=== PATIENT | male | born 1995 | race Caucasian/White ===

== ENCOUNTER 2016-09-27 13:06 | Emergency (ER) | payer OTHER ==
[2016-09-27 14:33] VITALS: BP 111/59
--- NOTE | 2016-09-27 15:09 | UC ---
Respiratory Complaint HPI - HPI Summary HPI Summary: 20 yo male with cough x 1 month hx of asthma no f/c productive of yellowish sputum no CP no SOB - History of Current Complaint Chief Complaint: UCRespiratory Stated Complaint: COUGH SORE THROAT Time Seen by Provider: 09/27/16 15:00 Hx Obtained From: Patient Onset/Duration: Gradual Onset, Lasting Weeks - 4 or more Timing: Constant Severity Initially: Mild Severity Currently: Moderate Pain Intensity: 2 Pain Scale Used: 0-10 Numeric Character: Cough: Productive - yellow Aggravating Factors: Exertion Alleviating Factors: Bronchodilator Associated Signs And Symptoms: Positive: Wheezing - Allergies/Home Medications Allergies/Adverse Reactions: Allergies Allergy/AdvReac Type Severity Reaction Status Date / Time Amoxicillin Allergy Hives Verified 09/27/16 14:33 Ceftriaxone [From Rocephin] Allergy Hives Verified 09/27/16 14:33 Home Medications: Home Medications Albuterol HFA INHALER* [Ventolin HFA Inhaler*] 2 puff INH Q4H PRN 09/27/16 [ History Confirmed 09/27/16] Dextromethorphan-Phenylephrine [Day Time Multi-Symptom Co] 1 cap PO PRN [History] PMH/Surg Hx/FS Hx/Imm Hx Endocrine History Of: Denies: Diabetes, Thyroid Disease Cardiovascular History Of: Denies: Cardiac Disorders, Hypertension Respiratory History Of: Reports: Asthma, Pneumonia - age 7 Denies: COPD GI/ History Of: Denies: Ulcer - Surgical History Surgical History: Yes Surgery Procedure, Year, and Place: Right ankle surgery - Family History Known Family History: Positive: Hypertension, Respiratory Disease - Social History Alcohol Use: Occasionally Substance Use Type: Marijuana Substance Use Comment - Amount & Last Used: weekend use Smoking Status (MU): Never Smoked Tobacco Review of Systems Constitutional: Negative Skin: Negative Eyes: Negative ENT: Negative Respiratory: Cough Cardiovascular: Negative Gastrointestinal: Negative Genitourinary: Negative Motor: Negative Neurovascular: Negative Musculoskeletal: Negative Neurological: Negative Psychological: Negative All Other Systems Reviewed And Are Negative: Yes Physical Exam Triage Information Reviewed: Yes Appearance: Well-Appearing, No Pain Distress, Well-Nourished Vital Signs: Initial Vital Signs Temp 97.9 F 09/27/16 14:28 Pulse 67 09/27/16 14:28 Resp 14 09/27/16 14:28 BP 111/59 09/27/16 14:28 Pulse Ox 97 09/27/16 14:28 Vital Signs Reviewed: Yes Eyes: Positive: Conjunctiva Clear ENT: Positive: Hearing grossly normal, Pharynx normal, Pharyngeal erythema, TMs normal, TM bulging Respiratory: Positive: Wheezing - with forced expiration inspiratory wheeze left lower lobe Cardiovascular: Positive: RRR, No Murmur, Pulses Normal Abdomen Description: Positive: Nontender, No Organomegaly, Soft Bowel Sounds: Positive: Present Musculoskeletal: Positive: ROM Intact, No Edema Neurological: Positive: Alert Psychological Exam: Normal Skin Exam: Normal UC Diagnostic Evaluation - Laboratory O2 Sat by Pulse Oximetry: 97 Respiratory Course/Dx - Course Course Of Treatment: declines CXR. states he will reconsider if symtpoms worsen or if not improved in 5 days - Differential Dx/Diagnosis Provider Diagnoses: acute bronchitis Discharge - Discharge Plan Condition: Stable Disposition: HOME Prescriptions: Azithromycin TAB* [Zithromax TAB*] 250 mg PO DAILY #6 tab Benzonatate CAP* [Tessalon CAP*] 100 - 200 mg PO TID PRN #28 cap PRN Reason: Cough Prednisone [Deltasone] 40 mg PO DAILY #10 tab Patient Education Materials: Acute Bronchitis (ED) Referrals: Non Staff,Doctor [Primary Care Provider] - Additional Instructions: rest] fluids recheck for new or worsening symptoms recheck next week if not completely za
== END 2016-09-27 15:24 | disposition home or self-care (01) ==
LOC: UCCORT 13:06
DX: J20.9 Acute bronchitis, unspecified (principal); Z88.1 Allergy status to other antibiotic agents; F12.90 Cannabis use, unspecified, uncomplicated
CPT/HCPCS: 99212; G0463

== ENCOUNTER 2017-05-24 13:55 | Emergency (ER) | payer OTHER ==
[2017-05-24 14:17] VITALS: BP 122/59
--- NOTE | 2017-05-24 15:03 | RAD ---
HISTORY: Left clavicle trauma COMPARISONS: None VIEWS: 2, frontal and frontal oblique views of the left clavicle FINDINGS: BONE DENSITY: Normal. BONES: There is no displaced fracture. JOINTS: There is no arthropathy. ALIGNMENT: There is no dislocation. SOFT TISSUES: Unremarkable. OTHER FINDINGS: None. IMPRESSION: NO ACUTE OSSEOUS INJURY. IF SYMPTOMS PERSIST, RECOMMEND REPEAT IMAGING.
--- NOTE | 2017-05-24 15:07 | RAD ---
INDICATION: Left shoulder pain after hockey injury to a fairly COMPARISON: None. TECHNIQUE: 4 views of the left shoulder were obtained. FINDINGS: The adequately corticated bones are in normal alignment. Joint spaces appear maintained. No fracture, dislocation or focal bony abnormality is seen. IMPRESSION: Normal radiograph of the left shoulder. If the patient's symptoms persist, follow-up imaging is recommended.
--- NOTE | 2017-05-24 15:16 | ED ---
Upper Extremity Pain - HPI Summary HPI Summary: 21 yr old male with the complaint of left shoulder clavicle pain. Onset two days ago when playing hockey. He hit his left anterior shoulder with another player. he felt a harness puller the clavicle area an into his lateral trapezius left side. His pain is moderate, worse with elevation of the left arm above 90 degrees forward flexion and abduction. No weakness or numbness in the hand. - History of Current Complaint Chief Complaint: UCUpperExtremity Stated Complaint: LT SHOULDER INJURY Time Seen by Provider: 05/24/17 14:40 - Allergies/Home Medications Allergies/Adverse Reactions: Allergies Allergy/AdvReac Type Severity Reaction Status Date / Time Amoxicillin Allergy Hives Verified 05/24/17 14:17 Ceftriaxone [From Rocephin] Allergy Hives Verified 05/24/17 14:17 Home Medications: Home Medications Ibuprofen [Advil] 400 mg PO Q4H PRN 05/24/17 [History Confirmed 05/24/17] PMH/Surg Hx/FS Hx/Imm Hx Previously Healthy: Yes Endocrine/Hematology History: Denies: Hx Diabetes, Hx Thyroid Disease Cardiovascular History: Denies: Hx Hypertension Respiratory History: Reports: Hx Asthma, Hx Pneumonia - age 7 Denies: Hx Chronic Obstructive Pulmonary Disease (COPD) GI History: Denies: Hx Ulcer - Surgical History Surgery Procedure, Year, and Place: Right ankle tendon repair surgery Infectious Disease History: No Infectious Disease History: Denies: Hx Clostridium Difficile, Hx Hepatitis, Hx Human Immunodeficiency Virus (HIV), Hx of Known/Suspected MRSA, Hx Shingles, Hx Tuberculosis, Hx Known/ Suspected VRE, Hx Known/Suspected VRSA, History Other Infectious Disease, Traveled Outside the [place] in Last 30 Days - Family History Known Family History: Positive: Hypertension, Respiratory Disease - Social History Alcohol Use: Occasionally Substance Use Type: Reports: Marijuana Substance Use Comment - Amount & Last Used: occassional Smoking Status (MU): Never Smoked Tobacco Review of Systems Constitutional: Negative Positive: Other - left shoulder pain All Other Systems Reviewed And Are Negative: Yes Physical Exam Triage Information Reviewed: Yes Vital Signs On Initial Exam: Initial Vitals Temp Pulse Resp BP 98.5 F 68 18 122/59 05/24/17 14:11 05/24/17 14:11 05/24/17 14:11 05/24/17 14:11 Vital Signs Reviewed: Yes Appearance: Positive: Well-Appearing, No Pain Distress Skin: Positive: Skin Color Reflects Adequate Perfusion Head/Face: Positive: Normal Head/Face Inspection Eyes: Positive: EOMI ENT: Positive: Normal ENT inspection Respiratory/Lung Sounds: Positive: Clear to Auscultation, Breath Sounds Present Cardiovascular: Positive: RRR. Negative: Murmur Abdomen Description: Positive: Nontender Musculoskeletal: Positive: Other - ROM is decreased on forward flexion and abduction left arm beyond 90 degrees. Neurological: Positive: Sensory/Motor Intact, Alert, Oriented to Person Place, Time, CN Intact II-III Psychiatric: Positive: Normal - Quan Coma Scale Best Eye Response: 4 - Spontaneous Best Motor Response: 6 - Obeys Commands Best Verbal Response: 5 - Oriented Diagnostics - Vital Signs Vital Signs Temp Pulse Resp BP 05/24/17 14:11 98.5 F 68 18 122/59 - Laboratory Lab Statement: Any lab studies that have been ordered have been reviewed, and results considered in the medical decision making process. - Radiology left shoulder/clavicle Xray Interpretation: No Acute Changes Radiology Interpretation Completed By: Radiologist Course/Dx - Course Course Of Treatment: 21 yr old with ac joint and sterno clavicular joint strain , and contusion to the left shoulder. Rx motrin, and referral to Ortho for further outpatient eval. - Diagnoses Provider Diagnoses: AC joint pain, Sternoclavicular (joint) (ligament) sprain, Contusion of shoulder, left Discharge - Discharge Plan Condition: Good Disposition: HOME Prescriptions: Ibuprofen TAB* [Motrin TAB* 600 MG] 600 mg PO Q6H PRN #20 tab PRN Reason: Pain Patient Education Materials: Shoulder Sprain (ED) Referrals: Non Staff,Doctor [Primary Care Provider] - Alexandra Martin MD [Medical Doctor] - 2 Days
== END 2017-05-24 15:31 | disposition home or self-care (01) ==
LOC: UCCORT 13:55
DX: M25.512 Pain in left shoulder (principal); S43.62XA Sprain of left sternoclavicular joint, initial encounter; S40.012A Contusion of left shoulder, initial encounter; W50.0XXA Accidental hit or strike by another person, initial encounter; Y93.22 Activity, ice hockey
CPT/HCPCS: 99212; G0463